=== PATIENT | female | born 1955 | race Two or more races ===

== ENCOUNTER 2018-10-10 07:32 | Outpatient (CLI) | payer OTHER | END 2018-10-10 07:48 | disposition home or self-care (01) | LOC: SONOGRAMA 07:32 → MAMO-SONO 09:45 | DX: R22.42 Localized swelling, mass and lump, left lower limb (principal) ==

== ENCOUNTER 2020-02-10 07:25 | Day surgery (SDC) | payer OTHER ==
[~2020-02-10 07:25] MED LIST: COZAAR50 MG PO; HUMALOG100 UNIT/2; LANTUS; METOPR PO; SYNTH PO; [UNRECOGNIZED DRUG - OTHER] PO
[2020-02-10] MEDS ORDERED: PERCOCET 5-3251 EACH PO (13:19)
[2020-02-10] MEDS ORDERED: ALEVE220 M1 PO (13:19)
[2020-02-10] MEDS ORDERED: DUI500 PO (13:19)
== END 2020-02-10 16:15 | disposition home or self-care (01) ==
LOC: CIR.AMB 07:25 → LAB 14:39 → CIR.AMB 16:15 → LAB 17:45 → CIR.AMB 17:45
PROVIDERS: ATTEND Orthopaedic Surgery
DX: S52.571A Other intraarticular fracture of lower end of right radius, initial encounter for closed fracture (principal); S52.611A Displaced fracture of right ulna styloid process, initial encounter for closed fracture
CPT/HCPCS: 25609; C1776; 20902